=== PATIENT | female | born 1950 | race Caucasian/White ===

== ENCOUNTER 2021-08-06 08:15 | Emergency (ER) | payer OTHER ==
[~2021-08-06] VITALS: Ht 162.6 cm; Wt 41.3 kg
[~2021-08-06 08:15] MED LIST: ASPI-1071 PO; ATOR20TA66 PO; NOR5T PO
[2021-08-06] MEDS ORDERED: lactulose 20gm/30ml cup PO ONE (10:05)
[2021-08-06] MEDS ORDERED: POLY17PO10 PO (10:06)
[2021-08-06] MEDS ORDERED: cloNIDine 0.1 mg tablet PO ONE (10:20)
--- NOTE | 2021-08-06 11:07 | NUR ---
ATTEMPTED TO DC PT AFTER CATAPRESS GIVEN. BP REMAINS ELEVATED AT 229/114 AND 214/111. PROVIDER NOTIFIED
[2021-08-06] MEDS ORDERED: morphine 4 MG/ML inj SYRINge IV PRN (11:10)
[2021-08-06] MEDS ORDERED: normal saline 1000ML IV soln IVB ONE (11:10)
[2021-08-06] MEDS ORDERED: ondansetron/PF 4mg/2ml inj IV ONE (11:10)
[2021-08-06 11:27] LABS: BASOPHILS # (AUTO) 0.1 X10'3 (0-0.2); BASOPHILS % (AUTO) 0.7 % (0-1); EOSINOPHILS # (AUTO) 0.1 X10'3 (0-0.9); EOSINOPHILS % (AUTO) 0.8 % (0-6); HEMATOCRIT 42.2 % (35.0-45.0); HEMOGLOBIN 13.9 g/dl (12.0-16.0); LYMPHOCYTES # (AUTO) 1.3 X10'3 (1.1-4.8); LYMPHOCYTES % (AUTO) 16.3 % (21-51); MEAN CORPUSCULAR HEMOGLOBIN 30.2 PG (27.0-31.0); MEAN CORPUSCULAR HGB CONC 32.8 g/dL (33.0-36.5); MONOCYTES # (AUTO) 0.7 X10'3 (0-0.9); MONOCYTES % (AUTO) 8.5 % (2-12); NEUTROPHILS % (AUTO) 73.7 % (42-75); PLATELET COUNT 255 X10'3 (140-440); RED BLOOD COUNT 4.59 X10'6 (4.20-5.60); RED CELL DISTRIBUTION WIDTH 14.9 % (11.5-14.5); WHITE BLOOD COUNT 8.1 X10'3 (4.5-11.0)
[2021-08-06 11:40] LABS: ALANINE AMINOTRANSFERASE 14 U/L (12-78); ALBUMIN/GLOBULIN RATIO 0.8 (1.1-1.5); ALKALINE PHOSPHATASE 96 IU/L (46-116); ANION GAP 8 (8-16); ASPARTATE AMINO TRANSFERASE 20 U/L (10-37); BILIRUBIN,TOTAL 0.5 MG/DL (0.1-1.0); CHLORIDE 100 MMOL/L (99-107); GLUCOSE 104 MG/DL (70-104); POTASSIUM 3.8 MMOL/L (3.5-5.1); SODIUM 134 MMOL/L (135-145); TOTAL CARBON DIOXIDE 26.2 MMOL/L (24-32); TOTAL PROTEIN 6.9 G/DL (6.4-8.2)
[2021-08-06 11:49] LABS: BLOOD UREA NITROGEN 18 MG/DL (7-18); BUN/CREATININE RATIO 21.4 (6.6-38.0); CALCIUM 9.5 MG/DL (8.5-10.1); CREATININE 0.84 MG/DL (0.40-0.90); LIPASE 127 U/L (73-393); eGFR 67 ML/MIN
[2021-08-06 12:58] VITALS: BP 183/97
== END 2021-08-06 13:00 | disposition home or self-care (01) ==
LOC: ER 08:16
DX: K59.00 Constipation, unspecified (principal); M54.50 Low back pain, unspecified; R11.2 Nausea with vomiting, unspecified; I10 Essential (primary) hypertension; Z79.82 Long term (current) use of aspirin; Z79.899 Other long term (current) drug therapy
CPT/HCPCS: 36415; 74018; 74176; 80053; 83690; 85025; 96361; 96374; 96375; 99284; J2270; J2405; J7030; 99285